=== PATIENT | female | born 1960 | race Caucasian/White ===

== ENCOUNTER 2016-05-24 20:18 | Emergency (ER) | payer OTHER ==
[~2016-05-24] VITALS: Ht 162.6 cm; Wt 72.6 kg
[~2016-05-24 20:18] MED LIST: CRS10 PO; ESCI1TAB10 PO; TRAZ50TA35 PO
[2016-05-24 20:19] VITALS: TEMP 36.6; Ht 162.6 cm; Wt 72.6 kg
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
[2016-05-24 21:25] VITALS: BP 121/81; PULSE 73; O2SAT 98
== END 2016-05-24 21:28 | disposition home or self-care (01) ==
LOC: C.EDB 20:19 → C.EDD 21:28
DX: S00.83XA Contusion of other part of head, initial encounter (principal); V89.2XXA Person injured in unspecified motor-vehicle accident, traffic, initial encounter; F17.200 Nicotine dependence, unspecified, uncomplicated; F32.9 Major depressive disorder, single episode, unspecified

== ENCOUNTER 2017-03-02 18:56 | Emergency (ER) | payer OTHER ==
[~2017-03-02] VITALS: Ht 162.6 cm; Wt 75.4 kg
[~2017-03-02 18:56] MED LIST changes: -CRS10 PO
[2017-03-02 19:13] VITALS: TEMP 36.9; Ht 162.6 cm; Wt 75.4 kg
--- NOTE | 2017-03-02 19:43 | DIAGNOSTIC IMAGING REPORT ---
R FOOT MIN 3 VIEWS ROUTINE CLINICAL HISTORY: R PLANTAR FOOT PAIN COMPARISON: None. DISCUSSION: No acute fractures are visualized. There are moderate osteoarthritic changes at the level the first metatarsal phalangeal joint. There is Achilles insertional spur and plantar calcaneal spur. There are no erosive changes. IMPRESSION: 1. No acute fractures 2. Calcaneal spurring 3. Moderate arthritic changes at the level of the first metatarsal phalangeal joint Electronically signed by: Choco Mina M.D. 03/02/2017 7:42 PM Dictated Date/Time: 03/02/2017 7:41 PM
[2017-03-02 20:26] VITALS: BP 142/77; PULSE 87; O2SAT 94
--- NOTE | 2017-03-03 00:39 | EMERGENCY ROOM VISIT NOTE ---
History First contact with patient: 19:18 Chief Complaint: FOOT PAIN Stated Complaint: FOOT PAIN,HURTS TO WALK History of Present Illness The patient is a 56 year old female who presents to the Emergency Room with complaints of a painful lump on the bottom of her right foot. The patient denies any known injury. The patient reports that she did notice something that looked like a wart, and try to cut it out approximately 3 months ago. The patient reports that the pain did improve until approximately 2 weeks ago when it started to worsen. The patient has had significant worsening pain since yesterday. She has not noticed any redness. She has been applying gauze to the bottom of the foot. 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 The patient denies any prior problems with her feet, and currently rates her discomfort a 10 out of 10 with weightbearing. Review of Systems 10 system review was performed and was negative except for pertinent positives and negatives as indicated in history of present illness Past Medical/Surgical History Medical Problems: (1) Depression (2) High cholesterol Medical Problems: (1) Calcif Tendinitis Shlder (2) Depression (3) High cholesterol (4) Hypothyroidism Nos (5) Major Depressive Disorder, Single Episode, Unspecified (6) Tobacco Use Disorder Surgical Problems: (1) History of cholecystectomy (2) History of hysterectomy Family History FH: cancer FH: diabetes mellitus FH: heart disease No significant family history Social History Smoking Status: Current Every Day Smoker Drug Use: none Housing Status: lives with family Current/Historical Medications No Active Prescriptions or Reported Meds Physical Exam Vital Signs Date Time Temp Pulse Resp B/P (MAP) Pulse Ox O2 Delivery O2 Flow Rate FiO2 03/02/17 20:26 87 18 142/77 94 Room Air 03/02/17 19:13 36.9 91 18 136/67 95 Room Air Physical Exam CONSTITUTIONAL: Healthy and well nourished. Alert and oriented X 3 with positive affect. Patient does not appear in any acute distress on exam. HEENT: Normocephalic, atraumatic. Pupils equal, round and reactive. NECK: Full active range of motion without discomfort. MUSCULOSKELETAL: Examination of the plantar right foot does not show any obvious tissue changes, erythema, palpable masses or ecchymosis. She is tender over the bottom of the heel. She has no additional tenderness through the distal plantar fascia or distal metatarsal heads. No worsening pain with subtalar motion. No tenderness to palpation of the Achilles tendon. Pedal pulses are intact. INTEGUMENTARY: No rash or other significant dermatologic conditions noted. NEUROLOGIC: Right foot and toes are sensory intact. Medical Decision & Procedures ER Provider Diagnostic Interpretation: My interpretation of right foot x-rays does not show any obvious fractures or radiopaque foreign bodies. A calcaneal spur is noted. Radiologist report is as follows: R FOOT MIN 3 VIEWS ROUTINE CLINICAL HISTORY: R PLANTAR FOOT PAIN COMPARISON: None. DISCUSSION: No acute fractures are visualized. There are moderate osteoarthritic changes at the level the first metatarsal phalangeal joint. There is Achilles insertional spur and plantar calcaneal spur. There are no erosive changes. IMPRESSION: 1. No acute fractures 2. Calcaneal spurring 3. Moderate arthritic changes at the level of the first metatarsal phalangeal joint ED Course Patient history and physical exam were performed. Nurse's notes were reviewed. Vital signs were reviewed and were normal. X-rays of the foot were normal. The patient was advised to try minimizing weight as much as possible. She was provided a note for work to minimize weightbearing as much as possible until reevaluated by orthopedics. The patient refused crutches. She was encouraged to intermittently apply ice to the foot. Ibuprofen and Tylenol in alternating fashion if needed for additional pain relief. I did encourage the patient to follow-up with [facility] for further reevaluation and management. The patient was happy with plan of care, voiced understanding of all discharge instructions, and rated her discomfort a 4 out of 10 at the conclusion of my exam. Medical Decision X-rays today does not show any evidence for acute fracture or radiopaque foreign body. Translucent foreign body is also a possibility. Other differentials considered included plantar fasciitis, musculotendinous strain, mid foot sprain, and neuroma. Her examination is not consistent with cellulitis or gout. The patient does have good pedal pulses, therefore I do not suspect claudication. Medication Reconcilliation Current Medication List: was personally reviewed by me Blood Pressure Screening Patient's blood pressure: Normal blood pressure Impression Primary Impression: Right foot pain Departure Information Prescriptions No Active Prescriptions or Reported Meds Referrals No Doctor, Assigned (PCP) Patient Instructions My [facility]
== END 2017-03-02 20:27 | disposition home or self-care (01) ==
LOC: C.EDB 18:57 → C.EDD 20:27
DX: M79.671 Pain in right foot (principal); F17.200 Nicotine dependence, unspecified, uncomplicated; Z80.9 Family history of malignant neoplasm, unspecified; Z83.3 Family history of diabetes mellitus; Z82.49 Family history of ischemic heart disease and other diseases of the circulatory system